=== PATIENT | female | born 1965 | race Caucasian/White ===

== ENCOUNTER 2022-06-12 10:27 | Emergency (ER) | payer SELFPAY ==
[2022-06-12] MEDS ORDERED: Lactated Ringers 1,000 ML IV ONE (10:35)
[2022-06-12] MEDS ORDERED: Ondansetron 4 MG/2 ML SDV IVPUSH ONE (10:36)
[2022-06-12 11:30] LABS: POTASSIUM,K 4.1 mmol/L (3.5-5.1)
[2022-06-12 11:45] LABS: CORONAVIRUS COVID-19 NAA NEGATIVE (NEGATIVE); INFLUENZA A NAA NEGATIVE (NEGATIVE); INFLUENZA B NAA NEGATIVE (NEGATIVE); RESPIRATORY SYNCYTIAL VIR NAA NEGATIVE (NEGATIVE)
[2022-06-12] MEDS ORDERED: Alum Hydro/Mag Hydro/Simeth XS 15 ML, Lidocaine 2% 5 ML PO ONE ×2 (12:19)
== END 2022-06-12 14:42 | disposition home or self-care (01) ==
LOC: MW.ED 10:27
DX: R00.2 Palpitations (principal); R11.0 Nausea; R53.1 Weakness; K21.9 Gastro-esophageal reflux disease without esophagitis; Z88.2 Allergy status to sulfonamides; Z90.49 Acquired absence of other specified parts of digestive tract; Z79.899 Other long term (current) drug therapy; Z20.822 Contact with and (suspected) exposure to COVID-19
CPT/HCPCS: 0241U; 36415; 71045; 80053; 83690; 84443; 84484; 85025; 93005; 96360; 99285; A9270; J7120